=== PATIENT | male | born 1965 | race Caucasian/White ===

== ENCOUNTER 2020-03-18 07:20 | Emergency (ER) | payer MEDICAID ==
[~2020-03-18] VITALS: Ht 185.4 cm; Wt 92.9 kg
[2020-03-18 07:21] VITALS: BP 202/131
== END 2020-03-18 07:32 | disposition home or self-care (01) ==
LOC: M.ERS 07:20
DX: F10.129 Alcohol abuse with intoxication, unspecified (principal); Y90.9 Presence of alcohol in blood, level not specified

== ENCOUNTER 2020-03-19 00:48 | Emergency (ER) | payer MEDICAID ==
[~2020-03-19] VITALS: Ht 182.9 cm; Wt 95.0 kg
[2020-03-19 01:16] LABS: ABSOLUTE BASOPHILS 0.2 thou/uL (0.0-0.2); ABSOLUTE EOSINOPHILS 0.3 thou/uL (0.0-0.7); ABSOLUTE MONOCYTES 0.8 thou/uL (0.0-1.2); EOSINOPHILS 3.9 %; HEMATOCRIT 45.5 % (42.0-52.0); HEMOGLOBIN 15.9 gm/dL (14.0-18.0); LYMPHOCYTES 36.5 %; MCH 32.2 pg (26.0-34.0); MCV 92.1 fL (80.0-100.0); MONOCYTES 9.5 %; MPV 9.4 fl. (7.2-11.1); NUCLEATED RBCS 0 /100WBC; PLATELET COUNT* 104 thou/uL (150-400); POLYS 48.1 %; RBC 4.94 mil/uL (4.50-6.00); RDW-CV 13.3 % (10.5-14.5); WBC 8.3 thou/uL (4.0-11.0)
[2020-03-19 01:23] LABS: INR 1.1; PROTIME 11.9 Seconds (9.20-11.50)
[2020-03-19 01:31] LABS: CALCIUM 8.7 mg/dL (8.5-10.1); CREATININE 1.2 mg/dL (0.6-1.3); POTASSIUM 3.8 mmol/L (3.5-5.1)
[2020-03-19 01:35] LABS: TOTAL PROTEIN 7.4 g/dL (6.4-8.2)
[2020-03-19 01:40] LABS: INFLUENZA A ANTIGEN Negative (Negative); INFLUENZA B ANTIGEN Negative (Negative)
[2020-03-19 03:26] VITALS: BP 181/106
--- NOTE | 2020-03-19 09:06 | EKG ---
[place] [address] ELECTROCARDIOGRAM REPORT Name: MOR MERCEDES Room: [facility]#: [id number] Admission: 03/19/20 Attend Phys: Discharge: 03/19/20 Date of : 61 Date of Service: 03/19/20 0049 Report #: [id number] THIS REPORT FOR: //name// [facility] ED Test Date: 2020-03-19 Test Time: 00:49:46 Pat Name: MOR MERCEDES Department: Room: Gender: Profile Grinder: : 1965 Requested By: Rosalia Chavarria Order Number: [id number] MD: Manuel Zhou Measurements Intervals [place] Rate: 66 P: -41 MT: 132 QRS: -9 QRSD: 101 T: 31 QT: 420 QTc: 441 Interpretive Statements Sinus rhythm Abnormal R-wave progression, early transition Left ventricular hypertrophy No previous ECG available for comparison Electronically Signed On 03-19-2020 9:06:27 [employer] by Manuel Zhou [email or web address] <ELECTRONICALLY SIGNED> By: Manuel Zhou MD, [facility] 03/19/2006 0049 0049 Manuel Zhou MD, FAC /EPI
== END 2020-03-19 03:26 | disposition home or self-care (01) ==
LOC: M.ERS 00:48
PROVIDERS: Emergency Medicine
DX: R07.89 Other chest pain (principal); F10.20 Alcohol dependence, uncomplicated; Y90.9 Presence of alcohol in blood, level not specified; R10.13 Epigastric pain; R10.11 Right upper quadrant pain; Z20.828 Contact with and (suspected) exposure to other viral communicable diseases